=== PATIENT | female | born 1980 | race Caucasian/White ===

== ENCOUNTER → 2016-09-29 | Outpatient (REF) | payer SELFPAY ==
[~2016-09-29] MED LIST: MOTR200T44 PO; NO MEDICATIONS; PRENTAB43 PO
[2016-09-29 18:56] LABS: BASO % 0.3 % (0.0-1.0); EOS # 0.1 K/mm3 (0.0-0.50); EOS % 0.6 % (0.0-3.0); LARGE UNSTAINED CELL # 0.2 K/mm3 (0.0-0.4); LARGE UNSTAINED CELL % 2.2 % (0.0-4.0); LYMPH # 2.9 K/mm3 (1.5-4.5); LYMPH % 26.9 % (24.0-44.0); MEAN CORPUSCULAR HEMOGLOBIN 26.8 pg (27.0-33.0); MEAN CORPUSCULAR HGB CONC 31.1 g/dl (32.0-36.5); MEAN CORPUSCULAR VOLUME 86.2 fl (80.0-96.0); MONO # 0.6 K/mm3 (0.0-0.8); MONO % 5.8 % (0.0-5.0); NEUTROPHILS # 6.9 K/mm3 (1.8-7.7); NEUTROPHILS % 64.2 % (36.0-66.0); PLATELET COUNT, AUTOMATED 210 k/mm3 (150-450); RED CELL DISTRIBUTION WIDTH 14.3 % (11.5-14.5); WHITE BLOOD COUNT 10.8 K/mm3 (4.0-10.0)
[2016-09-29 19:06] LABS: FREE T4 0.95 NG/DL (0.76-1.46)
[2016-09-29 19:08] LABS: LUTEINIZING HORMONE 5.6 mIU/mL
== END | disposition home or self-care (01) ==
LOC: M LAB REF 17:40
PROVIDERS: ATTEND Obstetrics & Gynecology
DX: N92.1 Excessive and frequent menstruation with irregular cycle (principal)

== ENCOUNTER 2016-11-28 06:55 | Day surgery (SDC) | payer SELFPAY ==
[2016-11-28] VITALS (7 sets, daily range): BP systolic 109–131; BP diastolic 62–84
[~2016-11-28] VITALS: Ht 167.6 cm; Wt 74.8 kg
[2016-11-28] MEDS ORDERED: ceFAZolin SOD 1 GM in D5W MINI-BAG PLUS 50 ML IV ONE (07:00)
[2016-11-28] MEDS ORDERED: LR 1,000 ML IV SCH ×3 (07:15→11:15)
[2016-11-28] MEDS ORDERED: ACETAMINOPHEN 650 MG SUPP PR ONE (07:15)
[2016-11-28 07:25] LABS: MEAN CORPUSCULAR HEMOGLOBIN 26.9 pg (27.0-33.0); MEAN CORPUSCULAR HGB CONC 31.9 g/dl (32.0-36.5); MEAN CORPUSCULAR VOLUME 84.4 fl (80.0-96.0); RED CELL DISTRIBUTION WIDTH 13.7 % (11.5-14.5); WHITE BLOOD COUNT 4.9 K/mm3 (4.0-10.0)
[2016-11-28 08:02] LABS: CONTROL LINE HCG INT CTR LINE PRESENT
[2016-11-28] MEDS ORDERED: ACETAMINOPHEN 650 MG SUPP As Ordered ONE (08:02)
[2016-11-28] MEDS ORDERED: VASOPRESSIN INJ 20 UNITS/ML VIAL As Ordered ONE (08:03)
[2016-11-28 08:05] LABS: ANION GAP 5 MEQ/L (8-16); BLOOD UREA NITROGEN 10 MG/DL (7-18); CARBON DIOXIDE LEVEL 29 MEQ/L (21-32); CHLORIDE LEVEL 106 MEQ/L (98-107); CREATININE FOR GFR 0.79 MG/DL (0.55-1.02); GLOMERULAR FILTRATION RATE > 60.0 (>60); GLUCOSE, FASTING 97 MG/DL (70-105); POTASSIUM SERUM 4.4 MEQ/L (3.5-5.1); SODIUM LEVEL 140 MEQ/L (136-145)
[2016-11-28] MEDS ORDERED: fentaNYL 250 MCG/5 ML INJECTION (J3010) As Ordered ONE (08:10)
[2016-11-28 08:12] LABS: CONTROL LINE UCG INT CTR LINE PRESENT
[2016-11-28] MEDS ORDERED: MIDAZOLAM INJ 2 MG/2 ML VIAL (J2250) As Ordered ONE (08:17)
[2016-11-28] MEDS ORDERED: dexameTHASONE 4 MG/ML 1ML VIAL (J1100) As Ordered ONE (08:56)
[2016-11-28] MEDS ORDERED: KETOROLAC 60 MG/2 ML VIAL (J1885) As Ordered ONE (08:57)
[2016-11-28] MEDS ORDERED: METOCLOPRAMIDE INJ 10MG/2ML VIAL (J2765) As Ordered ONE (08:57)
[2016-11-28] MEDS ORDERED: ONDANSETRON 4MG/2ML VIAL (J2405) As Ordered ONE (08:57)
[2016-11-28] MEDS ORDERED: ROCURONIUM BROMIDE 50 MG/5 ML VIAL As Ordered ONE (09:10)
[2016-11-28] MEDS ORDERED: PROPOFOL 200 MG/20 ML VIAL As Ordered ONE (09:10)
[2016-11-28] MEDS ORDERED: ePHEDrine SULFATE 25 MG/5 ML(5MG/ML) SYRINGE As Ordered ONE (09:19)
[2016-11-28] MEDS ORDERED: NEOSTIGMINE 1MG/ML 5 ML SYRINGE (J2710) As Ordered ONE (09:37)
[2016-11-28] MEDS ORDERED: MEPERIDINE INJ 25 MG/ML VIAL (J2175) As Ordered ONE (10:42)
[2016-11-28] MEDS: MEPERIDINE INJ 25 MG/ML VIAL (J2175) IV PRN ×3 (10:44→11:52)
[2016-11-28] MEDS ORDERED: PERCOCET PO (10:50)
[2016-11-28] MEDS ORDERED: fentaNYL 100 MCG/2 ML INJECTION (J3010) IV PRN (11:15)
[2016-11-28] MEDS ORDERED: ONDANSETRON 4MG/2ML VIAL (J2405) IV PRN (11:15)
[2016-11-28] MEDS ORDERED: KETOROLAC 30 MG/ML VIAL (J1885) IV PRN (11:15)
[2016-11-28] MEDS ORDERED: diphenhydrAMINE INJ 50MG/ML VIAL (J1200) IV PRN (11:15)
[2016-11-28] MEDS ORDERED: PERCOCET 5MG/325MG TAB PO PRN (11:15)
[2016-11-28] MEDS ORDERED: HYDROmorphone HCL 1 MG/ML SYRINGE (J1170) IV PRN (11:15)
--- NOTE | 2016-11-28 11:19 | RO ---
DATE OF PROCEDURE: 11/28/2016 PREOPERATIVE DIAGNOSES: 1. Menorrhagia. 2. Pelvic pressure. POSTOPERATIVE DIAGNOSIS: 1. Menorrhagia. 2. Pelvic pressure. 3. Gaping introitus. PROCEDURES: 1. Total vaginal hysterectomy. 2. Removal of both tubes. 3. Perineorrhaphy. SURGEON: Romulo Chacon DO GRAINER MACHINE: ANESTHESIA: General. COMPLICATIONS: None. ESTIMATED BLOOD LOSS: Less than 100 mL. FINDINGS: Mildly enlarged uterus with a bulky cervix and a gaping introitus. HISTORY: Barb is a 36-year-old female with an extensive history of menometrorrhagia, pelvic pressure. After counseling in the office, the decision was made for total vaginal hysterectomy, possible removal of both tubes. DESCRIPTION OF PROCEDURE: After obtaining informed consent, the patient was taken to the operating room where general anesthetic was found to be adequate. She was then draped and prepped in the usual sterile fashion in the dorsal lithotomy position. At this point, a Santo catheter was placed in the bladder for drainage. We then placed a weighted speculum on the posterior fornix, and the anterior and posterior lip of the cervix were then grasped with two [facility] clamps. Using a Pitressin solution in a circumferential manner the cervix was infiltrated. Then the Bovie was used and a circumferential incision was made. Anterior and posterior cul-de-sac was then entered. Joe clamp was placed at the level of the uterosacral ligament, which was clamped, cut and suture ligated using #0 Vicryl suture. The suture was left in place for closure of the vaginal cuff. The opposite side was done in a similar fashion. We then took serial bites to include the uterine artery, the utero-ovarian ligament. These were clamped, cut and suture ligated using #0 Vicryl sutures. At this point, the fallopian tube was identified with a Guicho and a Joe clamp was placed, and the fallopian tube was then removed and suture ligated using #2-0 Vicryl suture. The ovaries were inspected which were found to be within normal limits. At this point, attention was turned to the peritoneum which was held with an Allis clamp and using #2-0 Vicryl in a pursestring fashion, the perineal cavity was then closed. The sutures that were left at the level of the uterosacral ligament were used to close the vaginal cuff. A piece of Surgicel was oversewn in the vaginal cuff for good hemostasis, and excellent hemostasis was noted. We then turned our attention to the gaping introitus where two Allis' were used at the orifice and one at the perineal body, a triangular incision was made. The excess skin and vaginal mucosa was removed and sent to pathology. At this point #0 Vicryl was used at the level of the levator ani, imbricating those in a midline fashion. We then closed the vaginal mucosa using #2-0 Vicryl suture. A few interrupted sutures were placed in the perineal body and the skin was closed in a subcuticular fashion using #2-0 Vicryl. Good hemostasis noted. The patient tolerated procedure well. She was then transferred to recovery room in stable condition.
[2016-11-28] MEDS: PERCOCET 5MG/325MG TAB PO PRN ×2 (12:06→16:50)
[2016-11-28] MEDS: SIMETHICONE 80 MG CHEW TAB PO SCH ×3 (14:03→23:55)
[2016-11-28] MEDS: IBUPROFEN 800 MG TAB PO SCH ×2 (15:08→21:09)
[2016-11-29] VITALS: BP 124/76
[2016-11-29 03:30] VITALS: BP 130/76
[2016-11-29] MEDS: IBUPROFEN 800 MG TAB PO SCH ×2 (03:38→08:48)
[2016-11-29] MEDS: SIMETHICONE 80 MG CHEW TAB PO SCH (06:10)
[2016-11-29 08:00] VITALS: BP 121/80
[2016-11-29] MEDS ORDERED: MOTR200T44 PO (10:17)
== END 2016-11-29 10:50 | disposition home or self-care (01) ==
LOC: M SDC 06:55 → M PED 11:37 → M SDC 11-29 10:50
PROVIDERS: ATTEND Obstetrics & Gynecology
DX: N92.0 Excessive and frequent menstruation with regular cycle (principal); R10.2 Pelvic and perineal pain; N81.89 Other female genital prolapse
CPT/HCPCS: 36415; 56810; 58262; 80048; 84703; 85027; 86850; 86900; 86901; 88302; 88309; J0690; J1100; J1885; J2175; J2250; J2405; J2710; J2765; J3010

== ENCOUNTER → 2020-08-03 | Outpatient (CLI) | payer SELFPAY ==
[~2020-08-03] MED LIST changes: +PERCOCET PO
== END ==
LOC: M LABSMTC 13:10
PROVIDERS: ATTEND Pediatrics
DX: Z20.828 Contact with and (suspected) exposure to other viral communicable diseases (principal)

== ENCOUNTER → 2020-10-04 | Outpatient (CLI) | payer SELFPAY | LOC: M LABSMTC 09:47 | PROVIDERS: ATTEND Pediatrics | DX: Z20.822 Contact with and (suspected) exposure to COVID-19 (principal) ==

== ENCOUNTER → 2020-10-08 | Outpatient (CLI) | payer SELFPAY | LOC: M LABSMTC 10:27 | PROVIDERS: ATTEND Pediatrics | DX: Z20.822 Contact with and (suspected) exposure to COVID-19 (principal) ==

== ENCOUNTER → 2020-10-18 | Outpatient (CLI) | payer SELFPAY ==
[~2020-10-18] MED LIST changes: +ISOVUE-370 76% 100ML VIAL As Ordered ONE
--- NOTE | 2020-10-18 09:04 | REP ---
INDICATION: NEOPLASM OF BEHAV OF BONE SOFT TISSUE AND SKIN. COMPARISON: None. TECHNIQUE: Bolus of 75 mL Isovue 370 scanning through the chest with coronal and sagittal reconstructions provided. FINDINGS: The lung tamez are well inflated without pleural effusion, pleural thickening, apical scar or acute infiltrate. I see no parenchymal mass or pulmonary nodule. The heart is not enlarged. There is no pericardial thickening or effusion. Thymic remnant seen in the superior mediastinum, normal for age. No mass. No mediastinal, hilar, axillary or supraclavicular mass/adenopathy. The aorta is unremarkable. Central pulmonary arteries in the mediastinum and proximal lobar arteries were without filling defects. There are bilateral submuscular breast implants. The left implant shows a fluid collection at its posterosuperior medial margin. It indents the posterior wall of the implant. The attenuation values for this fluid collection are in the mid teens suggesting a seroma. The implant itself appears to have an intact envelope and is similar in size to the right side. The bone windows show the sternum, manubrium, medial clavicles, AC joints, scapulae, visualized portions of humeral heads, ribs and spine to be grossly intact. The upper abdomen shows the liver, spleen, gallbladder and pancreas seen in part and without acute finding the upper poles of the kidneys and adrenal glands are unremarkable. Pancreas intact. Stomach without hiatal hernia. IMPRESSION: 1. No acute cardiopulmonary change. Lung tamez are clear and there is no mediastinal, hilar or axillary adenopathy. The aorta and pulmonary arteries are unremarkable. 2. Bilateral breast implants with a fluid collection along the posterior superomedial aspect of the left breast that may reflect seroma. It has low CT attenuation values suggest fluid. The breast implants are symmetric in size and their envelopes appear intact bilaterally. 3. Upper abdomen and the bony structures are unremarkable. <Electronically signed by Clark Polanco > 10/18/20 0900
== END ==
LOC: M RAD 07:50
PROVIDERS: ATTEND Plastic Surgery Surgery of the Hand
DX: D49.2 Neoplasm of unspecified behavior of bone, soft tissue, and skin (principal); Z98.82 Breast implant status
CPT/HCPCS: 71260; Q9967

== ENCOUNTER → 2020-10-31 | Outpatient (CLI) | payer SELFPAY ==
[~2020-10-31] MED LIST changes: -ISOVUE-370 76% 100ML VIAL As Ordered ONE
--- NOTE | 2020-10-31 15:23 | REP ---
INDICATION: N63.20 LT BREAST U/S. Patient is status post augmentation with silicone breast implants. Palpable lump superomedial aspect left breast/chest wall. COMPARISON: Comparison is made with recent CT study October 18, 2020.. TECHNIQUE: Targeted left breast and left axillary sonography. FINDINGS: In the superomedial quadrant of the left breast there is a hypoechoic lens shaped structure measuring approximately 4.7 x 4.8 x 1.7 cm in diameter along the superior and medial and somewhat posterior aspect of the upper margin of the implant. This hypoechoic structure is deep to the overlying pectoralis muscle as is the silicone implant. It is adjacent to the implant and the implant margin is deformed by the lesion. There are 1 or 2 tiny internal areas of Doppler flow. Lesion is not felt to be hypervascular. Lesion corresponds with the low-density area adjacent to and deforming the superomedial margin of the implant on recent chest CT. Scanning in the left and right axilla demonstrates several normal-sized lymph nodes. The largest left axillary lymph node measures 2.3 x 2.2 x 0.7 cm. There is a left axillary lymph node measuring 2.0 x 1.9 x 0.7 cm. In the right axilla there is a 1.7 x 2.2 x 0.5 cm lymph node which also appears benign. These lymph nodes retain their central hilar fatty architecture unchanged do not show suspicious cortical thickening. IMPRESSION: 4.8 x 4.7 x 1.7 cm hypoechoic structure along the superomedial aspect of the retro pectoral augmentation silicone implant on the left. The implant is deformed by the lesion. The lesion is most compatible with extra capsular implant rupture with extracapsular silicone and or complex fluid. The minimal Doppler flow present within the lesion may be from intervening fibrous capsular elements. Breast MRI scanning could be considered. BI-RADS category 2 findings. <Electronically signed by Merritt Cottrell > 10/31/20 [id number]
== END ==
LOC: M WHC 13:31
PROVIDERS: ATTEND Surgery
DX: R92.8 Other abnormal and inconclusive findings on diagnostic imaging of breast (principal); N63.20 Unspecified lump in the left breast, unspecified quadrant; Z98.82 Breast implant status

== ENCOUNTER → 2020-11-07 | Outpatient (CLI) | payer SELFPAY ==
[~2020-11-07] MED LIST changes: +MULT-90 PO
[2020-11-07 10:20] VITALS: BP 114/74
--- NOTE | 2020-11-07 11:37 | REP ---
INDICATION: US GUIDED BX/LEFT BREAST LESION/ASPIRATION. COMPARISON: Comparison sonography October 31, 2020.. TECHNIQUE: Sonographic guidance. FINDINGS: Ultrasound guidance is provided to Dr. Gallego performed ultrasound-guided needle biopsy procedure. Marker clip placement. IMPRESSION: Ultrasound guidance. Procedural imaging. <Electronically signed by Merritt Cottrell > 11/07/20 [id number]
--- NOTE | 2020-11-07 22:55 | ROOPDOC ---
[facility] Report Of Operation Report of Operation DATE OF PROCEDURE: DIAGNOSIS: left breast suspicious lesion, possibly fluid PROCEDURE: Ultrasound guided attempted aspiration of left chest wall fluid, followed by ultrasound guided biopsy of left chest wall suspicious lesion with clip placement SURGEON: Robbin Diaz BLOOD LOSS: minimal COMPLICATIONS: none Lidocaine 1% LOT [id number] Expiration 11/2023 Sodium Bicarbonate 4% LOT [id number] Expiration 11/2020 Hydromark clip LOT [id number] Expiration 06/2023 SHAPE : 3 Bx device: TEMNO 18G x 20 cm LOT [id number] Expiration 05/2023 Informed consent was obtained. The most common risk and possible complications including bleeding, hematoma, bruising, infection, injury to surrounding structures were explained to the patient and the patient expressed understanding. Patient was placed on the bed in the supine position. Appropriate time out was done stating patients name, date of , and the procedure to be performed. The left chest wall was prepped and draped in the usual fashion. The ultrasound was used to confirm the location of the retropectoral lesion in the left upper medial chest. The implant was noted inferiorly to the mass. Plain Lidocaine 1% and 4% sodium bicarbonate 10:2 mix was used to anesthetize the skin, the biopsy site and tissues along the anticipated biopsy tract. Small skin incision was made with blade number 11. Temno 18G cannula with introducer was inserted through the incision and advanced under the ultrasound guidance through the muscle and to position immediately adjacent to the suspicious mass. Next, the introducer was removed and Temno 18G biopsy device was places in the cannula. Pre-biopsy imaging, and post-biopsy imaging were captured. Five good core biopsies were taken at various levels of the lesion making sure that the implant was away from the suspicious lesion. Specimen was placed in formaldehyde, labeled with appropriate biopsy site and patients name, and sent to pathology for evaluation. Next, the biopsy device was withdrawn and a clip introducer was inserted into the biopsy site via the cannula. The SHAPE 3 Hydromark clip was deployed under sonographic guidance. Post-clip placement image was captured. Manual pressure over the biopsy cavity and tract was held after the clip introducer was withdrawn. No bleeding was noted upon removal of the pressure. No mammogram was done as the lesion is retropectoral. Postprocedural dressing was placed. Patient tolerated procedure well. Discharge instructions were discussed with the patient and the patient expressed understanding. ROBBIN DIAZ DO Nov 07, 2020 22:54
== END ==
LOC: M WHCPRO 08:45
PROVIDERS: ATTEND Surgery
DX: D48.1 Neoplasm of uncertain behavior of connective and other soft tissue (principal)

== ENCOUNTER → 2021-02-15 | Outpatient (CLI) | payer SELFPAY | LOC: M LABSMTC 10:51 | PROVIDERS: ATTEND Anesthesiology | DX: Z01.818 Encounter for other preprocedural examination (principal); Z11.52 Encounter for screening for COVID-19 ==

== ENCOUNTER 2021-02-20 09:23 | Day surgery (SDC) | payer SELFPAY ==
[~2021-02-20] VITALS: Ht 167.6 cm; Wt 75.7 kg
[~2021-02-20 09:23] MED LIST changes: +NS 1,000 ML IV ONE
[2021-02-20] MEDS ORDERED: propofoL 200 MG/20 ML VIAL As Ordered ONE (11:10)
[2021-02-20] MEDS ORDERED: LIDOCAINE 2% 100MG/5ML SDV (FOR ANES.) As Ordered ONE (11:10)
--- NOTE | 2021-02-20 11:55 | ROOR ---
Patient Name: Barb Charlton Procedure Date: 02/20/2021 11:19 AM Date of : 1980 Age: 40 Room: [facility] Gender: Female Note Status: Finalized Procedure: Colonoscopy Indications: Screening for colorectal malignant neoplasm Providers: Adriano Duval MD Referring MD: Irma Gallego Do Requesting Provider: Medicines: Monitored Anesthesia Care Complications: No immediate complications. Procedure: Pre-Anesthesia Assessment: - Prior to the procedure, a History and Physical was performed, and patient medications and allergies were reviewed. The patient is competent. The risks and benefits of the procedure and the sedation options and risks were discussed with the patient. All questions were answered and informed consent was obtained. Patient identification and proposed procedure were verified by the physician, the nurse and the anesthesiologist in the procedure room. Mental Status Examination: alert and oriented. Airway Examination: normal oropharyngeal airway and neck mobility. Respiratory Examination: clear to auscultation. CV Examination: normal. Prophylactic Antibiotics: The patient does not require prophylactic antibiotics. Prior Anticoagulants: The patient has taken no previous anticoagulant or antiplatelet agents. ASA Grade Assessment: II - A patient with mild systemic disease. After reviewing the risks and benefits, the patient was deemed in satisfactory condition to undergo the procedure. The anesthesia plan was to use monitored anesthesia care (MAC). Immediately prior to administration of medications, the patient was re-assessed for adequacy to receive sedatives. The heart rate, respiratory rate, oxygen saturations, blood pressure, adequacy of pulmonary ventilation, and response to care were monitored throughout the procedure. The physical status of the patient was re-assessed after the procedure. The Colonoscope was introduced through the anus and advanced to the terminal ileum, with identification of the appendiceal orifice and IC valve. The colonoscopy was performed without difficulty. The patient tolerated the procedure well. The quality of the bowel preparation was good. The terminal ileum, ileocecal valve, appendiceal orifice, and rectum were photographed. Scope insertion time was 2 minutes. Scope withdrawal time was 9 minutes. The total duration of the procedure was 12 minutes. Findings: The perianal and digital rectal examinations were normal. The terminal ileum appeared normal. Normal mucosa was found in the entire colon. Non-bleeding external and internal hemorrhoids were found during retroflexion. The hemorrhoids were small. Impression: - The examined portion of the ileum was normal. - Normal mucosa in the entire examined colon. - Non-bleeding external and internal hemorrhoids. - No specimens collected. Recommendation: - Patient has a contact number available for emergencies. The signs and symptoms of potential delayed complications were discussed with the patient. Return to normal activities tomorrow. Written discharge instructions were provided to the patient. - High fiber diet. - Continue present medications. - Repeat colonoscopy at age 52 for screening purposes. - Return to GI clinic in [facility] (address [address], [address], [place] [address]) in 4 -- 6 weeks. Please call GI clinic @ [phone] for apppointment date and time. - Return to primary care physician. Procedure Code(s): --- Professional --- 76238, Colonoscopy, flexible; diagnostic, including collection of specimen(s) by brushing or washing, when performed (separate procedure) Diagnosis Code(s): --- Professional --- Z12.11, Encounter for screening for malignant neoplasm of colon K64.8, Other hemorrhoids CPT copyright 2019 [employer]. All rights reserved. The codes documented in this report are preliminary and upon expanded duty dental assistant review may be revised to meet current compliance requirements. Adriano Duval MD Adriano Duval MD 02/20/2021 11:54:59 AM Electronically signed by Adriano Duval MD Number of Addenda: 0 Note Initiated On: 02/20/2021 11:19 AM Estimated Blood Loss: Estimated blood loss was minimal.
[2021-02-20 12:05] VITALS: BP 101/65
== END 2021-02-20 12:20 | disposition home or self-care (01) ==
LOC: M OPP 09:23
PROVIDERS: ATTEND Internal Medicine Gastroenterology
DX: Z12.11 Encounter for screening for malignant neoplasm of colon (principal); Z87.39 Personal history of other diseases of the musculoskeletal system and connective tissue; K64.8 Other hemorrhoids